=== PATIENT | female | born 1955 | race Caucasian/White ===

== ENCOUNTER → 2018-03-27 16:44 | Outpatient (CLI) | payer OTHER ==
[2015-08-09 12:25] VITALS: BMI 29.1
[~2018-03-27 16:44] MED LIST: ACIDOPHILUS LAC1 CAP PO; ASPIRIN EC81 M1 PO; BIOTIN5 MG PO; BLACK COHOSH; BYSTOLIC2.5 MG PO; CO Q-1030 MG PO; HYZAAR 50-12.51 TAB PO; KRILL OIL 1,001 EAC1; MAGNESIUM OXID250 MG PO; MULTIPLE VITAMI1 TA1 PO; PRAVACHOL40 MG PO; VITAMIN B-121000 MCG PO; VITAMIN D31000 UNIT; XANAX0.25 MG PO
== END | disposition home or self-care (01) ==
LOC: D.MAMMO 13:15
DX: Z12.31 Encounter for screening mammogram for malignant neoplasm of breast (principal)

== ENCOUNTER → 2018-07-22 13:40 | Outpatient (CLI) | payer OTHER ==
[2015-08-09 12:25] VITALS: BMI 29.1
== END | disposition home or self-care (01) ==
LOC: D.CT 13:40
DX: J34.89 Other specified disorders of nose and nasal sinuses (principal)

== ENCOUNTER 2018-12-26 18:05 | Emergency (ER) | payer OTHER ==
[~2018-12-26] VITALS: Ht 165.1 cm; Wt 84.1 kg
[2018-12-26 18:06] VITALS: Ht 165.1 cm; Wt 84.1 kg
[2018-12-26 18:28] LABS: BASOPHILS 0.5 % (0-2); EOSINOPHILS 2.6 % (0-7); HEMATOCRIT 35.5 % (36.0-48.0); HEMOGLOBIN 11.6 g/dL (12-16); IMMATURE GRANULOCYTES 0.4 % (0-5); LYMPHOCYTES 29.9 % (15-50); MCH 28.6 pg (26.0-34.0); MCHC 32.7 g/dL (31.0-37.0); MCV 87.7 fL (80.0-100.0); MEAN PLATELET VOLUME 10.2 fL (7.4-10.4); MONOCYTES 9.7 % (2-11); NEUTROPHILS 56.9 % (40-80); PLATELET COUNT 260 10x3/uL (130-400); RBC 4.05 10x6/uL (4.00-5.40); RDW 14.2 % (11.5-14.5); WBC 12.8 10x3/uL (4.8-10.8)
[2018-12-26 18:46] LABS: INR 1.07 (0.85-1.17); PROTIME 13.4 SECONDS (11.6-15.0)
[2018-12-26 18:50] LABS: ALBUMIN 3.3 g/dL (3.4-5.0); ALKALINE PHOSPHATASE 102 U/L (46-116); ALT (SGPT) 29 U/L (10-68); BILIRUBIN - TOTAL 0.22 mg/dL (0.2-1.3); CALC OSMOLALITY 278 mosm/kg (275-300); CALCIUM 8.3 mg/dL (8.5-10.1); CARBON DIOXIDE 25.2 mmol/L (21.0-32.0); CHLORIDE - SERUM 103 mmol/L (98-107); GLUCOSE 134 mg/dL (74-106); POTASSIUM - SERUM 3.8 mmol/L (3.5-5.1); PROTEIN - SERUM 7.2 g/dL (6.4-8.2); SODIUM 138 mmol/L (136-145); UREA NITROGEN 15 mg/dL (7-18); eGFR NON AFRICAN AMERICAN 59 mL/min (90-120)
[2018-12-26 19:03] LABS: CKMB 0.9 U/L (0.0-3.6); CREATINE KINASE 139 UL (21-215); MAGNESIUM - SERUM 1.8 mg/dL (1.8-2.4); PRO BNP 791 pg/mL (0-125)
[2018-12-26 19:05] LABS: TROPONIN-I < 0.017 ng/mL (0.000-0.060)
[2018-12-26] MEDS ORDERED: KLONOPIN0.5 MG PO (19:43)
[2018-12-26 20:13] VITALS: BP 125/77
== END 2018-12-26 20:14 | disposition home or self-care (01) ==
LOC: D.ER 18:05
PROVIDERS: Emergency Medicine
DX: F41.9 Anxiety disorder, unspecified (principal)

== ENCOUNTER 2019-08-11 11:04 | Outpatient (CLI) | payer OTHER ==
[~2019-08-11] VITALS: Ht 165.1 cm; Wt 80.5 kg
--- NOTE | ~2019-08-11 | HEMODYNAMI ---
PATIENT:RONNY KENNY MEDICAL RECORD: [id number] : 57 LOCATION:[facility] ADMISSION DATE: 08/11/19 Generatedon:08/11/201913:42 Patient name: RONNY KENNY Patient #: [id number] SSN: [id number] : 1955 Date of study: 08/11/2019 Page: Of Hemodynamic Procedure Report Patient Data Patient Demographics Procedure consent was obtained First Name: RONNY Gender: Female Last Name: EFRAÍN : 1955 [facility] Initial: AMBIKA Age: 64 year(s) Patient #: [id number] Race: SSN: [id number] Additional ID: [id number] Contact details [address]: [address] [place] [address] State: [place] City: [place] Zip code: [address] Past Medical History History of disease Date Diagnosis Comments CHF Allergies: No known allergies Admission Admission Data Admission Date: 08/11/2019 Admission Time: 11:04 Admit Source: Other Insurance Payor: [facility] Height (in.): 65 BSA: 1.88 (m2) Height (cm.): 165.1 BMI: 29.45 (kg/m2) Weight (lbs.): 177 Weight (kg.): 80.29 Current Diagnosis Diagnosis Description Stable angina Lab Results Lab Result Date: 08/11/2019 Lab Result Time: 0:00 Biochemistry Name Units Result Min Max Creatinine mg/dl 1 --(--*-)-- 0.6 1.3 eGFR ml/min 59 *-(----)-- 90 120 NONAFRICAN CBC Name Units Result Min Max Hematocrit % 36.9 *-(----)-- 42 54 Hemoglobin g/dl 11.7 *-(----)-- 13.5 17.5 Procedure Procedure Types Cath Procedure Diagnostic Procedure LHC LH w/Coronaries Sedation Charges Procedure Description Procedure Date Procedure Date: 08/11/2019 Procedure Start Time: 13:18 Procedure End Time: 13:35 Procedure Staff Name Function Imsael Doyle MD Performing Physician Jayleen Vallejo RT Monitor Cathy Chi RT Scrub Jono Ramos RN Nurse Ahmet Rodriguez CRNA Additional personnel Procedure Data Cath Procedure Fluoroscopy Diagnostic fluoroscopy Total fluoroscopy Time: 1.5 time: 1.5 min min Diagnostic fluoroscopy Total fluoroscopy dose: 388 dose: 388 mGy mGy Contrast Material Contrast Material Type Amount (ml) Isovue 300 61 Entry Location Entry Primary Successful Side Size Upsize Upsize Entry Closure Succes sful Closure Location (Fr) 1 (Fr) 2 (Fr) Remarks Device Remarks Femoral Right 5 Fr Exoseal artery Estimated blood loss: 5 ml Procedure Complications No complications Procedure Medications Medication Administration Route Dosage Oxygen etCO2 Nasal cannula 2 l/min Lidocaine 2% added to field 20 0.9% NaCl I.V. 100 ml/hr Heparin Flush Bag added to field 2 bags (1000units/500ml NS) Versed I.V. 1 mg Fentanyl I.V. 50 mcg Versed I.V. 1 mg Fentanyl I.V. 50 mcg Versed I.V. 1 mg Hemodynamics Rest BSA: 1.88 (m2) O2 Consumption: Estimated: 188.19 (ml/min) O2 Consumption indexed : Estimated:100.1 (ml/min/m) Heart Rate: 86 (bpm) Pressure Samples Time Site Value (mmHg) Purpose Heart Use Rate(bpm) 13:31 LV 114/7,11 Snapshot 104 13:32 AO 101/53(73) Pullback 101 Gradients Valve Time Site Site 2 Mean SEP/DFP Peak To Heart Use 1 (mmHg) (sec/min) Peak Rate (mmHg) (bpm) Aortic 13:32 LV AO 15 24 101 101/53(73) Calculations Valve P-P Mean Valve Index Valve Source Name Gradient Area Flow (cm2) Aortic 15 15 Snapshots Pre Cath Intra NCS Post Cath Vital Signs Time Heart Resp SPO2 etCO2 NIBP Rhythm Pain Sedation Rate (ipm) (%) (mmHg) (mmHg) Status Level (bpm) 13:15:04 82 17 94 16.6 99/67(86) NSR 0 (11) 10(A) , No pain 13:19:06 91 16 94 0 108/72(93) NSR 0 (11) 10(A) , No pain 13:23:12 85 13 94 27.2 110/70(87) NSR 0 (11) 9(A) , No pain 13:27:20 93 13 93 37 103/66(86) NSR 0 (11) 9(A) , No pain 13:31:23 105 13 93 20.4 115/67(76) NSR 0 (11) 9(A) , No pain 13:35:31 101 16 95 21.9 103/70(83) NSR 0 (11) 10(A) , No pain Medications Time Medication Route Dose Verified Delivered Reason Notes Eff ectiveness by by 13:02:12 Oxygen etCO2 2 Ismael Buffie used for Nasal l/min Vivek Ramos RN procedure cannula 13:02:18 Lidocaine 2% added 20ml Ismael Ismael for local to vial Vivek Doyle MD anesthetic field 13:02:33 0.9% NaCl I.V. 100 Ismael Buffie Per ml/hr Vivek Ramos RN physician 13:02:49 Heparin Flush added 2 Ismael Buffie used for Bag to bags Vivek Ramos RN procedure (1000units/500ml field NS) 13:10:00 Versed I.V. 1 mg Ismael Buffie for Vivek Ramos RN sedation 13:10:06 Fentanyl I.V. 50 Ismael Buffie for mcg Vivek Ramos RN sedation 13:16:08 Versed I.V. 1 mg Ismael Buffie for Vivek Ramos RN sedation 13:16:12 Fentanyl I.V. 50 Ismael Buffie for mcg Vivek Ramos RN sedation 13:26:35 Versed I.V. 1 mg Ismael Buffie for Vivek Ramos RN sedation Procedure Log Time Note 12:38:57 Informed consent obtained and on chart 12:39:41 Admit Source: Other 12:41:11 ACC Patient presents with Stable Angina CCS Anginal Class 1--Ordinary physical activity does not cause angina, angina occurs with strenuos, rapid, or prolonged activity.. 12:41:18 Procedure Status Elective Heart Cath (OP). 12:41:22 Jono Ramos RN sent for patient. Start room use. 12:41:26 Time tracking: Regular hours (M-F 7:00 - 5:00) 12:41:32 Plan of Care:Hemodynamics will remain stable., Cardiac rhythm will remain stable., Comfort level will be maintained., Respiratory function will remain adequate., Patient/ family verbilizes understanding of procedure., Procedure tolerated without complication., Recovers from procedure without complications.. 12:41:38 Full Disclosure recording started 12::42 H&P Date Dictated: 08/11/2019 Within 30 days and on chart.. 12:43:42 Lab Result : Creatinine 1 mg/dl 12:43:42 Lab Result : eGFR NONAFRICAN 59 ml/min 12:43:42 Lab Result : Hemoglobin 11.7 g/dl 12:43:42 Lab Result : Hematocrit 36.9 % 12:44:05 Stress Test: yes; abnormal fixed anterior wall 12:45:35 Patient allergic to No known allergies 12:45:51 Insurance Payor : [facility] 12:46:01 Patient Height : 65 inches 12:46:04 Patient Weight : 177 lbs 12:46:08 Current Diagnosis : Stable angina 12:46:17 Diagnostic Cath Status : Elective 12:46:40 Is the patient allergic to Iodine/contrast media? No. 12:46:42 Was the patient premedicated? N/A 12:46:45 Is patient on blood thinner?No 12:46:49 ACC The patient was administered the following blood thiners within the last 24 hours: None 12:47:01 Patient diabetic? No. 12:47:10 Patient not . Patient is over age 55. 12:50:26 Risk of Mortality: 0.3 12:50:29 Risk of blood transfusion: 1.5 12:50:32 Risk of TRAV: 2.6 12:55:20 Patient received from Pre/Post Procedure Room to CCL 1 Alert and oriented. Tansferred to table in Supine position. 12:55:23 Warm blankets applied, and anshul hugger turned on for patient comfort. 12:55:23 Correct patient and procedure confirmed by team. 12:55:23 ECG and BP/O2 sat monitors applied to patient. 12:55:29 Pre-procedure instructions explained to patient. 12:55:30 Pre-op teaching completed and patient verbalized understanding. 12:55:32 Family in patients room. 12:55:35 Patient NPO since Midnight. 12:56:20 IV patent on arrival in left antecubital with 0.9% NaCl at O. 12:56:32 Patient pain scale 0/10 ?. 13:02:12 Oxygen 2 l/min etCO2 Nasal cannula was administered by Jono Ramos RN; used for procedure; Verbal order read back and verified. 13:02:18 Lidocaine 2% 20ml vial added to field was administered by Ismael Doyle MD; for local anesthetic; Verbal order read back and verified. 13:02:33 0.9% NaCl 100 ml/hr I.V. was administered by Jono Ramos RN; Per physician; Verbal order read back and verified. 13:02:49 Heparin Flush Bag (1000units/500ml NS) 2 bags added to field was administered by Jono Ramos RN; used for procedure; Verbal order read back and verified. 13:03:56 Previous problem with sedation/anesthesia? No ? 13:03:59 Snore? Yes 13:04:01 Sleep apnea? Yes 13:04:02 Deviated septum? No 13:04:03 Opens mouth fully? Yes 13:04:03 Sticks out tongue? Yes 13:04:05 Airway obstruction? No ? 13:04:08 Dentures? No ? 13:04:16 Pre procedure: right dorsailis pedis pulse 2+ Normal; easily identifiable; not easily obliterated 13:04:17 Pre procedure: left dorsailis pedis pulse 2+ Normal; easily identifiable; not easily obliterated 13:04:20 Patient pain scale 0/10 ?. 13:04:28 Right Radial & Right Groin area was prepped with chlora-prep and draped in sterile fashion 13:04:29 Alarms reviewed by R. N. 13:04:30 Sharps counted by scrub and verified by R.N. 13:04:31 Physician arrived 13:04:31 --------ALL STOP TIME OUT------ 13:04:33 Final Timeout: patient, procedure, and site verified with staff and physician. All members of the team are in agreement. 13:04:34 Right groin site verified by team. 13:04:38 Fire Safety Assessment: A--An alcohol-based skin anteseptic being used preoperatively., C--Open oxygen or nitrous oxide is being used., D--An ESU, laser, or fiber-optic light is being used. 13:04:44 Physical assessment completed. ASA score P 2 - A patient with mild systemic disease as per Ismael Doyle MD. 13:10:00 Versed 1 mg I.V. was administered by Jono Ramos RN; for sedation; Verbal order read back and verified. 13:10:06 Fentanyl 50 mcg I.V. was administered by Jono Ramos RN; for sedation; Verbal order read back and verified. 13:12:14 3a) 45-59 Moderately reduced kidney function. 13:13:22 Maximum allowable contrast dose (3.7 X eGFR X 0.75)163 ml. 13:13:26 Sedation plan: IV Moderate Sedation Medication:Versed, Fentanyl 13:13:34 Use device set Radial Dx or PCI 13:13:36 ACIST Syringe (17471) opened to sterile field. 13:13:36 Medline Cath Pack ([id number]) opened to sterile field. 13:13:36 Bag Decanter (2002S) opened to sterile field. 13:13:37 ACIST Hand Control (80932) opened to sterile field. 13:13:37 ACIST Manifold (72799) opened to sterile field. 13:13:38 Tegaderm 4 x 4 (1626W) opened to sterile field. 13:13:39 MBrace Wrist Support ([id number]) opened to sterile field. 13:13:41 SHEATH 6FR RAIN ([id number]) opened to sterile field. 13:13:42 EMERALD Guide Wire (224-621) opened to sterile field. 13:14:01 Vital chart was started 13:15:11 Zero performed for pressure channel P1 13:16:08 Versed 1 mg I.V. was administered by Jono Ramos RN; for sedation; Verbal order read back and verified. 13:16:12 Fentanyl 50 mcg I.V. was administered by Jono Ramos RN; for sedation; Verbal order read back and verified. 13:18:01 Procedure started. 13:18:11 Local anesthetic to right radial artery with Lidocaine 2% by Ismael Doyle MD.INITIAL ACCESS ONLY 13:20:11 Baseline sample Acquired. 13:21:09 Zero performed for pressure channel P1 13:23:56 Unable to gain radial access; preparing for femoral aproach 13:24:11 SHEATH 5FR [place] (DEL074) opened to sterile field. 13:24:12 DIAGNOSTIC Multipack 5Fr catheter set ([id number]) opened to sterile field. 13:24:31 Local anesthetic to right femoral artery with Lidocaine 2% by Ismael Doyle MD.ADDITIONAL ACCESS 13:24:38 A 5 Fr sheath was inserted into the Right Femoral artery 13:26:16 5 Fr jl 4 guide catheter was inserted over the wire 13:26:35 Versed 1 mg I.V. was administered by Jono Ramos RN; for sedation; Verbal order read back and verified. 13:27:37 LCA angiography performed. 13::40 Injector settings: Ml/sec: 3, Volume: 6, 13:29:04 Catheter removed. 13:29:11 5 Fr 3drc guide catheter was inserted over the wire 13:29:48 RCA angiography performed. 13:29:51 Injector settings: Ml/sec: 3, Volume: 6, 13:30:10 Catheter removed. 13:30:19 5 Fr pigtail guide catheter was inserted over the wire 13:31:37 LV hemodynamics recorded. 13:31:37 LV gram done using FIGUEROA 13::40 Injector settings: Ml/sec: 5, Volume: 15, 13:31:54 EF : 25 % 13:31:57 Catheter removed. 13:32:08 EXOSEAL 5Fr (EX500) opened to sterile field. 13:32:35 Sheath removed intact; hemostasis achieved with Exoseal to the Right Femoral artery. 13:32:38 Procedure ended.(Physican Out) 13:33:21 Fluoroscopy time 01.50 minutes. 13:33:26 Fluoroscopy dose: 388 mGy 13:33:26 Flurop Dose total: 388 13:33:30 Dose Area Product 14622 mGy/cm. 13:33:37 Contrast amount:Isovue 300 61ml. 13:33:44 Maximum allowable dose exceeded? No. 13:33:45 Sharps counted by scrub and verified by R.N. 13:34:27 Insertion/operative site no bleeding no hematoma. 13:34:36 Post-op/insertion site Right Femoral artery dressed using a 4 x 4 and Tegaderm. 13:34:38 Post Procedure Pulses reassessed and unchanged 13:34:40 Post procedure rhythm: unchanged. 13:34:43 Estimated blood loss: 5 ml 13:34:51 Post procedure instruction explained to patient.Patient verbalizes understanding. 13:34:52 Patient needs reinforcement of post procedure teaching. 13:35:02 Procedure type changed to Cath procedure, Diagnostic procedure, LHC, [facility] w/Coronaries, Sedation Charges 13:35:02 Procedure and supply charges have been captured, reviewed, submitted and are correct. 13:35:11 Procedure Complication : No complications 13:35:13 Vital chart was stopped 13:35:14 [facility] Findings: mild to moderate CAD (<70%) 13:35:16 Operative report dictated upon procedure completion. 13:35:16 See physician's report for complete and final results. 13:35:17 Report given to Pre/Post Procedure Room. 13:35:20 Patient transfered to Pre/Post Procedure Room with Stretcher. 13:35:23 Procedure ended. 13:35:23 Full Disclosure recording stopped 13:35:32 End room use (Document Last) 13:40:45 End room use (Document Last) 13:41:09 End room use (Document Last) Device Usage Item Name Manufacture Quantity Catalog Hospital Part Current Minima l Lot# / Number Charge Number Stock Stock Serial# Code ACIST Acist 1 92473 [id number] 239796 [id number] 20 Syringe Medical (63402) Systems Inc Medline Medline 1 [id number] [id number] 69661 507196 5 Cath Pack ([id number]) Bag Microtek 1 2001S 861088 82488 191620 5 Decanter Medical Inc. () ACIST Hand Acist 1 48520 067213 401489 354653 5 Control Medical (61380) Systems Inc ACIST Acist 1 11443 559337 603344 702739 5 Manifold Medical (03004) Systems Inc Tegaderm 4 3M 1 1626W 011816 735172 453490 5 x 4 (1626W) MBrace Advanced 1 140-0250-00 976162 11256 801755 5 Wrist Vascular Support Dynamics ([id number]) SHEATH 6FR Cardinal 1 [id number] 877061 8520123 360881 [address] [facility] (9268707) EMERALD Cardinal 1 502-455 226242 601876 541880 5 Guide Wire [facility] (502455) SHEATH 5FR Terumo 1 [id number] 699820 963962 393557 5 Eight Mile (LLC212) DIAGNOSTIC Cardinal 1 [id number] 210264 95823 569520 30 [facility] 5Fr catheter set (ZN7601) EXOSEAL 5Fr Cardinal 1 EX500 953678 559521 779214 10 (EX500) Health Signature Audit Shushan Stage Time Signature Unsigned Intra-Procedure 08/11/2019 Jayleen Vallejo 1:40:45 PM RT(R) Intra-Procedure 08/11/2019 Jono Ramos RN 1:41:09 PM Intra-Procedure 08/11/2019 Ismael Doyle MD 1:42:00 PM Signatures Performing Physician : Signature : Ismael Doyle MD Date : Time : Monitor : Jayleen Vallejo RT Signature : Date : Time : Nurse : Jono Ramos RN Signature : Date : Time : [address] [place] [address]
[~2019-08-11 11:04] MED LIST changes: +KLONOPIN0.5 MG PO
[2019-08-11] MEDS ORDERED: PROZAC20 MG PO (11:42)
[2019-08-11] MEDS ORDERED: K-TAB10 MEQ PO (11:43)
[2019-08-11] MEDS ORDERED: FUROSEMIDE20 MG PO (11:43)
[2019-08-11 12:04] VITALS: BP 94/42; Ht 165.1 cm; Wt 80.5 kg
[2019-08-11 12:17] LABS: BASOPHILS 0.4 % (0-2); EOSINOPHILS 1.8 % (0-7); HEMATOCRIT 36.9 % (36.0-48.0); HEMOGLOBIN 11.7 g/dL (12-16); IMMATURE GRANULOCYTES 0.2 % (0-5); MCH 28.1 pg (26.0-34.0); MCHC 31.7 g/dL (31.0-37.0); MCV 88.5 fL (80.0-100.0); MEAN PLATELET VOLUME 9.6 fL (7.4-10.4); MONOCYTES 8.5 % (2-11); NEUTROPHILS 60.1 % (40-80); PLATELET COUNT 266 10x3/uL (130-400); RBC 4.17 10x6/uL (4.00-5.40); RDW 14.1 % (11.5-14.5); WBC 9.6 10x3/uL (4.8-10.8)
[2019-08-11 12:33] LABS: ANION GAP 13.7 mmol/L (8-16); CARBON DIOXIDE 25.7 mmol/L (21.0-32.0); CHOL - HDL RATIO 3.7 ratio (2.3-4.1); LDL-HDL RATIO 2.1 ratio (1.5-3.5); POTASSIUM - SERUM 4.4 mmol/L (3.5-5.1)
--- NOTE | 2019-08-11 13:45 | NUR ---
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 DAUGHTER AT BS. DR. KAISER IN TO SEE PT. UPDATE GIVEN AND QUESTIONS ANSWERED. 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
[2019-08-11] MEDS ORDERED: COREG 3.1253.125 MG PO (13:54)
--- NOTE | 2019-08-11 14:00 | NUR ---
R GROIN SITE C/D/I, NO S/S OF BLEEDING OR HEMATOMA. PULSES PALP VSS, C/L IN REACH.
--- NOTE | 2019-08-11 14:30 | NUR ---
R GROIN SITE C/D/I, NO S/S BLEEDING OR HEMATOMA. PT RESTING QUIETLY, DENIES NEEDS. ALARMS ON AND C/L IN REACH.
--- NOTE | 2019-08-11 14:45 | NUR ---
R GROIN SITE SOFT, NO S/S BLEEDING OR HEMATOMA. VSS. PT DENIES PAIN OR NEEDS. ALARMS ON AND C/L IN REACH.
--- NOTE | 2019-08-11 15:26 | NUR ---
R GROIN SITE SOFT, C/D/I. HOB ELEVATED. PT HAS FAMILY BRINGING FOOD. VSS. C/L IN REACH. DAUGHTER REMAINS AT BS.
--- NOTE | 2019-08-11 15:57 | NUR ---
PT ATE LUNCH, NO N/V. R GROIN SITE C/D/I. VSS. FAMILY AT .
--- NOTE | 2019-08-11 16:00 | NUR ---
R GROIN SITE C/D/I, SOFT. PT "READY TO GO HOME". PIV D/C'D INTACT, DSG APPLIED.
--- NOTE | 2019-08-11 16:15 | NUR ---
B/P 86/48, MAP 64. PT ASYMPTOMATIC, WILL CONT CLOSE MONITORING.
--- NOTE | 2019-08-11 16:30 | NUR ---
MANUAL BP 98/60, DR. KAISER NOTIFIED, HE CAME TO SEE PT, NO NEW ORDERS - WILL CONT MONITORING. ALARMS ON.
--- NOTE | 2019-08-11 16:45 | NUR ---
PT UP TO BR. GAIT STEADY, DENIES DIZZINESS.
--- NOTE | 2019-08-11 16:49 | NUR ---
B/P 99/52. PT GETTING DRESSED WITH DAUGHTER ASSISTING. R GROIN SITE SOFT, C/D/I.
--- NOTE | 2019-08-11 17:05 | NUR ---
ALL DISCHARGE INSTRUCTIONS/MEDS/FOLLOW-UP WITH PT AND DAUGHTER. PT DISCHARGED VIA WC TO PRIVATE VEHICLE WITH ALL PAPERWORK AND BELONGINGS.
== END 2019-08-11 17:05 | disposition home or self-care (01) ==
LOC: D.CATH 11:04
PROVIDERS: ATTEND Internal Medicine Cardiovascular Disease
DX: I42.0 Dilated cardiomyopathy (principal); R94.39 Abnormal result of other cardiovascular function study; I10 Essential (primary) hypertension; R00.2 Palpitations; I34.0 Nonrheumatic mitral (valve) insufficiency; R06.00 Dyspnea, unspecified